=== PATIENT | female | born 1990 ===

== ENCOUNTER 2019-02-15 05:30 | Inpatient (IN) | payer OTHER, MEDICAID ==
[2019-02-15] MEDS ORDERED: CITRIC ACID/SODIUM CITRATE SOL PO SCH (06:00)
[2019-02-15] MEDS: LACTATED RINGERS 1,000 ML IV SCH ×4 (06:10→17:20)
[2019-02-15] MEDS ORDERED: ONDANSETRON HCL 4 MG/2 ML SOL ONE (06:53)
[2019-02-15] MEDS ORDERED: CEFAZOLIN SODIUM 1 GM PDS ONE (06:53)
[2019-02-15] MEDS ORDERED: OXYTOCIN 10000 MU/ML SOL ONE (06:53)
[2019-02-15] MEDS ORDERED: PHENYLEPHRINE HYDROCHLORIDE 10 MG/ML SOL ONE (06:53)
[2019-02-15] MEDS ORDERED: DEXAMETHASONE 20 MG/5 ML (4 MG/ML SOL) ONE (06:53)
[2019-02-15] MEDS ORDERED: FENTANYL 100MCG/2ML SOL ONE (06:54)
[2019-02-15] MEDS ORDERED: BUPIVACAINE/EPI 0.25% 50 ML SOL ONE (06:58)
[2019-02-15 07:37] LABS: APPEARANCE,URINE Slightly Cloudy; BILIRUBIN,URINE NEGATIVE (NEGATIVE); COLOR,URINE Yellow; GLUCOSE, URINE (UA) NEGATIVE (NEGATIVE); KETONES,URINE NEGATIVE (NEGATIVE); LEUKOCYTE ESTERASE ,URINE NEGATIVE (NEGATIVE); NITRATE,URINE NEGATIVE (NEGATIVE); OCCULT BLOOD,URINE NEGATIVE (NEG-TRACE); UROBILINOGEN,URINE 0.2 (0.2-1.0 EU)
[2019-02-15] MEDS ORDERED: LACTATED RINGERS 1,000 ML with OXYTOCIN 10000 MU/ML 20 MU IV ONE (07:50)
[2019-02-15 07:55] LABS: BACTERIA 1+ (< 1+); CRYSTALS NEGATIVE (0-3 AVE/HPF); RBC,URINE NEGATIVE (0-3AV/HPF); WBC,URINE 0-1 (0-5AV/HPF)
[2019-02-15] MEDS ORDERED: WITCH HAZEL 1 EA PAD TOP PRN (08:37)
[2019-02-15] MEDS ORDERED: TEMAZEPAM 15MG 15 MG CAP PO PRN (08:37)
[2019-02-15] MEDS ORDERED: BISACODYL 10 MG SUP PR PRN (08:37)
[2019-02-15] MEDS ORDERED: DIPHENHYDRAMINE 25 MG CAP PO PRN (08:37)
[2019-02-15] MEDS ORDERED: BENZOCAINE/MENTHOL 1 SPR TOP PRN (08:37)
[2019-02-15] MEDS ORDERED: ONDANSETRON HCL 4 MG/2 ML SOL IV PRN (08:37)
[2019-02-15] MEDS ORDERED: METHYLERGONOVINE MALEATE 0.2 MG TAB PO PRN (08:37)
[2019-02-15] MEDS ORDERED: FLEET ENEMA PR PRN (08:37)
[2019-02-15] MEDS: SODIUM CHLORIDE 0.9% FLUSH 10 ML SOL IV SCH ×2 (09:46→17:51)
[2019-02-15] MEDS: KETOROLAC TROMETHAMINE 30 MG/ML SOL IV PRN ×3 (09:47→22:39)
[2019-02-15] MEDS: APAP/HYDROCODONE 1 EACH TABLET PO PRN ×4 (10:39→23:34)
[2019-02-15] MEDS: DOCUSATE SODIUM 100 MG SGL PO SCH ×2 (11:55→21:04)
[2019-02-15] MEDS ORDERED: ENOXAPARIN 40 MG SOL SC ONE (20:57)
[2019-02-15] MEDS: ENOXAPARIN 40 MG SOL SC SCH (21:04)
[2019-02-16] MEDS: SODIUM CHLORIDE 0.9% FLUSH 10 ML SOL IV SCH ×3 (01:32→10:20)
[2019-02-16] MEDS: APAP/HYDROCODONE 1 EACH TABLET PO PRN ×5 (03:34→21:34)
[2019-02-16] MEDS: KETOROLAC TROMETHAMINE 30 MG/ML SOL IV PRN (04:39)
[2019-02-16] MEDS: MULTIVITAMIN2 1 EA TAB PO SCH (08:10)
[2019-02-16] MEDS: DOCUSATE SODIUM 100 MG SGL PO SCH ×2 (08:10→20:27)
[2019-02-16] MEDS: FOLIC ACID 1 MG TAB PO SCH (08:12)
[2019-02-16] MEDS: IBUPROFEN 600 MG TAB PO PRN ×3 (10:53→22:40)
[2019-02-16] MEDS ORDERED: ENOXAPARIN 40 MG SOL SC ONE (20:23)
[2019-02-16] MEDS: ENOXAPARIN 40 MG SOL SC SCH (20:24)
[2019-02-17] MEDS: LACTATED RINGERS 1,000 ML IV SCH (01:01)
[2019-02-17] MEDS: APAP/HYDROCODONE 1 EACH TABLET PO PRN ×5 (02:15→21:19)
[2019-02-17] MEDS: IBUPROFEN 600 MG TAB PO PRN ×3 (05:25→19:32)
[2019-02-17] MEDS: FOLIC ACID 1 MG TAB PO SCH (08:37)
[2019-02-17] MEDS: MULTIVITAMIN2 1 EA TAB PO SCH (08:37)
[2019-02-17] MEDS: DOCUSATE SODIUM 100 MG SGL PO SCH ×2 (08:37→21:16)
[2019-02-17 13:49] VITALS: RESP 20
[2019-02-17] MEDS ORDERED: ENOXAPARIN 40 MG SOL SC ONE (21:10)
[2019-02-17] MEDS: ENOXAPARIN 40 MG SOL SC SCH (21:16)
[2019-02-17 21:27] VITALS: O2SAT 96
[2019-02-18] MEDS: APAP/HYDROCODONE 1 EACH TABLET PO PRN ×4 (01:01→12:20)
[2019-02-18] MEDS: IBUPROFEN 600 MG TAB PO PRN (07:57)
[2019-02-18 08:05] VITALS: BP 110/73; PULSE 82; TEMP 98.9
[2019-02-18] MEDS: DOCUSATE SODIUM 100 MG SGL PO SCH (08:24)
[2019-02-18] MEDS: FOLIC ACID 1 MG TAB PO SCH (08:24)
[2019-02-18] MEDS: MULTIVITAMIN2 1 EA TAB PO SCH (08:24)
== END 2019-02-18 13:55 | disposition home or self-care (01) | DRG 788 ==
LOC: OB 05:45 → EDSTATUS 07:00
PROVIDERS: ADMIT Family Medicine; ATTEND Family Medicine
PROC: 10D00Z1 Extraction of Products of Conception, Low, Open Approach (ICD-10-PCS; principal; 2019-02-15 07:00)
DX: O82 Encounter for cesarean delivery without indication (principal); Z3A.40 40 weeks gestation of pregnancy; Z37.0 Single live birth
CPT/HCPCS: 36415; 59025; 81001; 82962; 85018; J0690; J1100; J1650; J1885; J2405; J2590; J3010; A6402; A9270-GY; J2370